=== PATIENT | male | born 1985 | race Caucasian/White ===

== ENCOUNTER 2020-10-13 08:14 | Inpatient (IN) | payer OTHER ==
[2020-10-13 08:52] VITALS: BMI 20.3
[2020-10-13] MEDS ORDERED: MENTHOL/PHENOL 1 EACH UD MM PRN (09:37)
[2020-10-13] MEDS ORDERED: ONDANSETRON *ODT* 4 MG TABLET SL PRN (09:37)
[2020-10-13] MEDS ORDERED: METHOCARBAMOL 500 MG TABLET PO PRN (09:37)
[2020-10-13] MEDS ORDERED: MAG HYDROX/AL HYDROX/SIMETH 30 ML UNIT-DOSE CUP PO PRN (09:37)
[2020-10-13] MEDS ORDERED: MAGNESIUM CITRATE 300 ML BOTTLE PO PRN (09:37)
[2020-10-13] MEDS ORDERED: BISMUTH SUBSALICYLATE 524 MG/30 ML PO PRN (09:37)
[2020-10-13] MEDS ORDERED: MAGNESIUM HYDROX 2400MG/30ML ORAL SUSPENSION 30 ML CUP PO PRN (09:37)
[2020-10-13] MEDS ORDERED: ACETAMINOPHEN 325 MG TABLET (FP) PO PRN ×2 (09:37)
[2020-10-13] MEDS ORDERED: IBUPROFEN 400 MG TABLET (FP) PO PRN (09:37)
[2020-10-13] MEDS: PRENATAL VITAMINS W/ FOLIC ACID TABLET (FP) PO SCH (11:05)
[2020-10-13] MEDS: hydrOXYzine PAMOATE 25 MG CAPSULE (FP) PO SCH ×4 (11:05→22:34)
[2020-10-13] MEDS: diazePAM 5 MG TABLET PO PRN (11:06)
[2020-10-13 15:07] LABS: HEMATOCRIT 41.4 % (35.4-49); HEMOGLOBIN 14.1 GM/dL (11.7-16.9); MCH 33.1 pg (25.7-33.7); MCHC 33.9 g/dl (32.0-35.9); MEAN CELL VOLUME 97.6 fl (80-96); MEAN PLT VOLUME 7.9 fl (7.5-11.1); PLATELET COUNT 215 10^3/uL (134-434); RBC 4.24 M/mm3 (4.00-5.60); RDW 15.3 % (11.9-15.9); WHITE BLOOD COUNT 4.3 K/mm3 (4.0-10.0)
[2020-10-13 15:19] LABS: CALCIUM 8.7 mg/dL (8.5-10.1)
[2020-10-13 15:23] LABS: CREATININE 0.7 mg/dL (0.55-1.3)
[2020-10-13 15:24] LABS: BILIRUBIN,TOTAL 0.2 mg/dL (0.2-1)
[2020-10-13 15:25] LABS: TOT PROT 8.1 g/dl (6.4-8.2)
[2020-10-13 16:14] LABS: HIV INTERPRETATION NEGATIVE (NEGATIVE)
[2020-10-13] MEDS: diazePAM 5 MG TABLET PO SCH ×2 (18:25→22:34)
[2020-10-13] MEDS: THIAMINE HCL 100 MG TABLET (FP) PO SCH (22:34)
[2020-10-13] MEDS: MELATONIN 5 MG TABLETS PO SCH (22:34)
[2020-10-14] MEDS: diazePAM 5 MG TABLET PO SCH ×4 (06:34→22:40)
[2020-10-14] MEDS: hydrOXYzine PAMOATE 25 MG CAPSULE (FP) PO SCH ×5 (06:34→22:40)
[2020-10-14] MEDS: PRENATAL VITAMINS W/ FOLIC ACID TABLET (FP) PO SCH (10:46)
[2020-10-14] MEDS ORDERED: MASKS NR ONE (18:21)
[2020-10-14] MEDS: THIAMINE HCL 100 MG TABLET (FP) PO SCH (22:40)
[2020-10-14] MEDS: MELATONIN 5 MG TABLETS PO SCH (22:40)
[2020-10-15] MEDS: diazePAM 5 MG TABLET PO SCH ×3 (07:09→22:46)
[2020-10-15] MEDS: hydrOXYzine PAMOATE 25 MG CAPSULE (FP) PO SCH ×5 (07:10→22:45)
[2020-10-15] MEDS: PRENATAL VITAMINS W/ FOLIC ACID TABLET (FP) PO SCH (11:10)
[2020-10-15 11:21] LABS: INR 0.97 (0.83-1.09)
[2020-10-15 11:35] LABS: BLOOD UREA NITROGEN 8.4 mg/dL (7-18); CALCIUM 8.9 mg/dL (8.5-10.1)
[2020-10-15 11:36] LABS: ALBUMIN 3.3 g/dl (3.4-5.0)
[2020-10-15 11:38] LABS: CREATININE 0.6 mg/dL (0.55-1.3)
[2020-10-15 11:39] LABS: BILIRUBIN,TOTAL 0.4 mg/dL (0.2-1)
[2020-10-15 11:40] LABS: TOT PROT 7.1 g/dl (6.4-8.2)
[2020-10-15] MEDS: diazePAM 5 MG TABLET PO PRN (17:59)
[2020-10-15] MEDS: MELATONIN 5 MG TABLETS PO SCH (22:45)
[2020-10-15] MEDS: THIAMINE HCL 100 MG TABLET (FP) PO SCH (22:45)
[2020-10-16] MEDS: diazePAM 5 MG TABLET PO SCH ×2 (08:10→18:17)
[2020-10-16] MEDS: hydrOXYzine PAMOATE 25 MG CAPSULE (FP) PO SCH ×5 (08:11→22:54)
[2020-10-16] MEDS: PRENATAL VITAMINS W/ FOLIC ACID TABLET (FP) PO SCH (10:51)
[2020-10-16] MEDS: MELATONIN 5 MG TABLETS PO SCH (22:54)
[2020-10-16] MEDS: THIAMINE HCL 100 MG TABLET (FP) PO SCH (22:54)
[2020-10-17] MEDS ORDERED: diazePAM 5 MG TABLET PO ONE (06:00)
[2020-10-17] MEDS: hydrOXYzine PAMOATE 25 MG CAPSULE (FP) PO SCH ×2 (07:05→12:40)
[2020-10-17 10:04] VITALS: BP 126/92; PULSE 91; TEMP 96.9
[2020-10-17] MEDS: PRENATAL VITAMINS W/ FOLIC ACID TABLET (FP) PO SCH (12:40)
== END 2020-10-17 10:00 | disposition home or self-care (01) | DRG 775 ==
LOC: YASAS 08:14 → Y3N 09:52
PROVIDERS: ADMIT Allergy & Immunology; ATTEND Allergy & Immunology
PROC: HZ2ZZZZ Detoxification Services for Substance Abuse Treatment (ICD-10-PCS; principal; 2020-10-13)
DX: F10.230 Alcohol dependence with withdrawal, uncomplicated (principal); F10.220 Alcohol dependence with intoxication, uncomplicated; F19.24 Other psychoactive substance dependence with psychoactive substance-induced mood disorder; F41.9 Anxiety disorder, unspecified; F32.9 Major depressive disorder, single episode, unspecified; G43.109 Migraine with aura, not intractable, without status migrainosus; R56.9 Unspecified convulsions; R74.01 Elevation of levels of liver transaminase levels; Z88.6 Allergy status to analgesic agent; Z88.5 Allergy status to narcotic agent; Z91.013 Allergy to seafood; Z59.0 Homelessness; Z56.0 Unemployment, unspecified
CPT/HCPCS: 36415; 80053; 85027; 85610; 86780; 87389; C9803; U0003; U0005